=== PATIENT | female | born 1960 | race Caucasian/White ===

== ENCOUNTER → 2016-05-12 | Outpatient (CLI) | payer BC ==
[~2016-05-12] MED LIST: CETIRIZINE PO; CYMBALTA60 MG PO; LISINOPRIL20 MG PO; METFORMIN1000 MG PO; WELLBUTRIN XL150 MG PO; [UNRECOGNIZED DRUG - OTHER] PO; [UNRECOGNIZED DRUG - OTHER] PO; [UNRECOGNIZED DRUG - OTHER] PO; [UNRECOGNIZED DRUG - OTHER] PO
== END ==
LOC: COL.RAD 11:49
DX: K76.0 Fatty (change of) liver, not elsewhere classified (principal); R14.0 Abdominal distension (gaseous)

== ENCOUNTER → 2016-05-18 | Outpatient (CLI) | payer BC | LOC: COL.RAD 06:03 | DX: R10.11 Right upper quadrant pain (principal) | CPT/HCPCS: A9537 ==

== ENCOUNTER → 2018-08-20 | Outpatient (CLI) | payer BC | LOC: MC.RAD 10:14 | DX: Z12.31 Encounter for screening mammogram for malignant neoplasm of breast (principal) ==

== ENCOUNTER 2019-04-24 02:53 | Emergency (ER) | payer BC ==
[~2019-04-24] VITALS: Ht 149.9 cm; Wt 100.0 kg
[2019-04-24 02:58] VITALS: TEMP 99.2
[2019-04-24 04:08] LABS: BASO % 0.6 % (0.0-2.0); EOS % 0.8 % (0-4.0); GRAN # 4.3 (1.4-6.5); GRAN % 80.9 % (42.2-75.2); HEMATOCRIT 37.2 % (37.0-47.0); HEMOGLOBIN 12.5 g/dl (12.5-16.0); LYMPH # 0.5 (1.2-3.4); LYMPH % 9.4 % (20.0-51.0); MEAN CELL VOLUME 86 fl (80.0-100.0); MEAN CORPUSCULAR HEMOGLOBIN 29 pg (27.0-31.0); MEAN CORPUSCULAR HGB CONC 34 g/dl (33.0-37.0); MEAN PLATELET VOLUME 9.4 fl (7.4-10.4); MONO # 0.4 (0.1-0.6); MONO % 7.9 % (1.7-9.3); PLATELET COUNT 188 K/mm3 (130-400); RED BLOOD COUNT 4.32 M/mm3 (4.10-5.30); REDCELL DISTRIBUTION WIDTH-CV 13.3 % (11.5-14.5)
[2019-04-24 04:16] LABS: PROTHROMBIN TIME 11.3 SECONDS (9.7-12.8)
[2019-04-24 04:22] LABS: ALANINE AMINOTRANSFERASE 20 U/L (4-34); ALKALINE PHOSPHATASE 84 U/L (50-136); ANION GAP 11 mmol/L (7-16); AST,SGOT 21 U/L (15-37); BILIRUBIN,TOTAL 0.6 mg/dL (0.0-1.0); BLOOD UREA NITROGEN 12 mg/dL (7-17); CALCIUM 8.8 mg/dL (8.4-10.2); CARBON DIOXIDE 24 mmol/L (22-30); CHLORIDE 96 mmol/L (98-107); CREATININE, serum 0.43 (0.52-1.25); POTASSIUM 4.2 mmol/L (3.4-5.0); SODIUM 132 mmol/L (137-145)
[2019-04-24 04:23] LABS: GLUCOSE 464 mg/dL (74-106)
[2019-04-24 04:49] LABS: TROPONIN-I < 0.012 ng/mL (0.000-0.035)
[2019-04-24] MEDS ORDERED: ZITHROMAX500 M2 PO (07:01)
[2019-04-24 07:20] VITALS: BP 130/71; PULSE 101
== END 2019-04-24 07:20 | disposition home or self-care (01) ==
LOC: COL.ER 02:53
PROVIDERS: Emergency Medicine
DX: J40 Bronchitis, not specified as acute or chronic (principal); E11.65 Type 2 diabetes mellitus with hyperglycemia; I10 Essential (primary) hypertension; Z79.84 Long term (current) use of oral hypoglycemic drugs
CPT/HCPCS: J0696; J1815; J3010; J7030

== ENCOUNTER 2019-07-18 07:30 | Day surgery (SDC) | payer BC ==
[~2019-07-18] VITALS: Ht 149.9 cm; Wt 97.6 kg
[~2019-07-18 07:30] MED LIST changes: +ZITHROMAX500 M2 PO
[2019-07-18] MEDS ORDERED: GLUCOPHAGE1000 MG PO (07:43)
[2019-07-18] MEDS ORDERED: JARDIANCE25 PO (07:43)
[2019-07-18 07:57] VITALS: BP 123/75; PULSE 81; TEMP 97.5
[2019-07-18 09:45] VITALS: BP 107/63; PULSE 89; TEMP 97.1
--- NOTE | 2019-07-18 09:45 | NUR ---
Patient arrives to [facility] via cart, accompanied by Endo RN Mirian. She is awake, but drowsy. She tolerated the procedure well. She ambulates with standby assist to the chair in her room. Bedside report is received from BILLY Vela. Monitoring is applied -VSS and WNL on room air. She denies any pain, nausea, or need. She is provided a warm blanket and lights are dimmed for comfort. Chair is reclined. She would like to just rest for now. Will continue to monitor.
[2019-07-18 10:00] VITALS: BP 94/64; PULSE 80
--- NOTE | 2019-07-18 10:00 | NUR ---
VSS and WNL on room air. She is more awake. She states she is cold. She is provided another warm blanket.
[2019-07-18 10:15] VITALS: BP 93/80; PULSE 81
--- NOTE | 2019-07-18 10:15 | NUR ---
VSS on room air. Resting comfortably in room.
--- NOTE | 2019-07-18 10:25 | NUR ---
Patient is sitting up in her chair. She denies pain or nausea. She is offered and receives water and a muffin to eat.
[2019-07-18 10:30] VITALS: BP 111/68; PULSE 85
--- NOTE | 2019-07-18 10:50 | NUR ---
Patient has met discharge criteria. Discharge instructions are discussed. She denies any questions and verbalizes understanding. PIV is removed with catheter intact and hemostasis achieved. She is changing to her clothing independently.
--- NOTE | 2019-07-18 11:13 | NUR ---
Patient is escorted to the exit via wheelchair by staff. She is discharged to home with ride in private vehicle at 1113.
== END 2019-07-18 11:13 | disposition home or self-care (01) ==
LOC: SDCO 07:30
DX: Z12.11 Encounter for screening for malignant neoplasm of colon (principal); D12.5 Benign neoplasm of sigmoid colon; F32.9 Major depressive disorder, single episode, unspecified; E11.9 Type 2 diabetes mellitus without complications; I10 Essential (primary) hypertension; G47.33 Obstructive sleep apnea (adult) (pediatric); E66.01 Morbid (severe) obesity due to excess calories; J44.9 Chronic obstructive pulmonary disease, unspecified; Z79.84 Long term (current) use of oral hypoglycemic drugs
CPT/HCPCS: J2704; J7030

== ENCOUNTER → 2020-12-17 | Outpatient (CLI) | payer BC ==
[~2020-12-17] MED LIST changes: +GLUCOPHAGE1000 MG PO; +JARDIANCE25 PO
== END ==
LOC: MC.RAD 13:59
DX: Z12.31 Encounter for screening mammogram for malignant neoplasm of breast (principal); Z00.00 Encounter for general adult medical examination without abnormal findings